=== PATIENT | male | born 1960 | race Caucasian/White ===

== ENCOUNTER 2018-12-25 13:42 | Emergency (ER) | payer OTHER ==
[~2018-12-25 13:42] MED LIST: IBU200 PO; KET10 PO; LOR10 PO; LOR5 PO; MULT-1335 PO; ONDA4TAB PO; PER PO
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
[2018-12-25] MEDS ORDERED: NS(*) 0.9% 1000 ML BAG 1,000 ML IV ONE (13:59)
[2018-12-25] MEDS ORDERED: fentaNYL CITR 100 MCG/2 ML AMP IVP ONE (14:00)
[2018-12-25] MEDS ORDERED: DIPHTH/TETANUS/ACEL. PERTUSSIS IM ONE (14:00)
[2018-12-25 14:35] LABS: PLATELET COUNT, AUTOMATED 192 K/uL (150-450)
[2018-12-25] MEDS ORDERED: IOPAMIDOL 76% 100 ML INFUS BTL 100 ML ONE (14:43)
[2018-12-25 15:04] LABS: INR 1.07
[2018-12-25 15:30] VITALS: BP 145/99
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
[2018-12-25] MEDS ORDERED: OXYC-865 PO (16:11)
[2018-12-25] MEDS ORDERED: LIDO700A19 TD (16:13)
== END 2018-12-25 16:25 | disposition home or self-care (01) ==
LOC: ER 13:56
DX: S32.018A Other fracture of first lumbar vertebra, initial encounter for closed fracture (principal); S32.028A Other fracture of second lumbar vertebra, initial encounter for closed fracture; S32.038A Other fracture of third lumbar vertebra, initial encounter for closed fracture; S22.41XA Multiple fractures of ribs, right side, initial encounter for closed fracture
CPT/HCPCS: 70450; 71260; 72125; 74177; 80320; 81001; 83690; 85025; 85610; 85730; 90471; 90715; 96361; 96374; 99284; J3010; J7030; L0172; Q9967; 82040; 82247; 82310; 82374; 82435; 82565; 82947; 84075; 84132; 84155; 84295; 84450; 84460; 84520